=== PATIENT | female | born 1990 | race Two or more races ===

== ENCOUNTER 2019-03-02 21:27 | Emergency (ER) | payer OTHER ==
[~2019-03-02] VITALS: Ht 162.6 cm; Wt 49.4 kg
== END 2019-03-02 23:55 | disposition home or self-care (01) ==
LOC: ER 21:27
DX: K64.4 Residual hemorrhoidal skin tags (principal)

== ENCOUNTER 2020-08-09 13:29 | Emergency (ER) | payer OTHER ==
[~2020-08-09] VITALS: Ht 162.6 cm; Wt 51.7 kg
== END 2020-08-09 16:13 | disposition home or self-care (01) ==
LOC: ER 13:29
DX: N83.291 Other ovarian cyst, right side (principal); R10.2 Pelvic and perineal pain

== ENCOUNTER 2020-10-23 15:20 | Emergency (ER) | payer OTHER ==
[~2020-10-23] VITALS: Ht 162.6 cm; Wt 49.0 kg
== END 2020-10-23 19:48 | disposition home or self-care (01) ==
LOC: ER 15:20
DX: N83.291 Other ovarian cyst, right side (principal); D28.7 Benign neoplasm of other specified female genital organs; R10.31 Right lower quadrant pain

== ENCOUNTER 2020-10-25 05:03 | Emergency (ER) | payer OTHER ==
[~2020-10-25] VITALS: Ht 162.6 cm; Wt 49.0 kg
[2020-10-25] MEDS ORDERED: LAMICTAL150 M1 (05:14)
[2020-10-25] MEDS ORDERED: PEPCID AC20 MG PO (10:18)
[2020-10-25] MEDS ORDERED: KETO10TA2 PO (10:18)
== END 2020-10-25 10:36 | disposition home or self-care (01) ==
LOC: ER 05:03
DX: N39.0 Urinary tract infection, site not specified (principal); R10.2 Pelvic and perineal pain

== ENCOUNTER 2023-08-26 05:54 | Emergency (ER) | payer OTHER ==
[~2023-08-26] VITALS: Ht 162.6 cm; Wt 55.8 kg
[~2023-08-26 05:54] MED LIST: KETO10TA2 PO; LAMICTAL150 M1; PEPCID AC20 MG PO
== END 2023-08-26 06:42 | disposition home or self-care (01) ==
LOC: ER 05:55
DX: H92.01 Otalgia, right ear (principal)

== ENCOUNTER 2024-05-14 00:42 | Emergency (ER) | payer OTHER ==
[~2024-05-14] VITALS: Ht 162.6 cm; Wt 54.4 kg
[2024-05-14] MEDS ORDERED: RINGERS SOLUTION,LACTATED 1,000 ML IV STA (02:11)
[2024-05-14] MEDS ORDERED: FAMOtidine 10 MG/ML (4ML VIAL) IV PUSH STA (02:12)
[2024-05-14] MEDS ORDERED: ONDANSETRON HCL 2 MG/ML VIAL IV STA (02:12)
[2024-05-14] MEDS ORDERED: KETOROLAC TROMETHAMINE 30 MG VIAL IV STA (02:13)
[2024-05-14 03:57] LABS: HEMATOCRIT 36.9 % (36.0-45.00); HEMOGLOBIN 12.6 g/dL (12.0-15.00); MEAN CELL VOLUME 91.6 fL (80.00-100.00); MEAN CORPUSCULAR HEMOGLOBIN 31.1 pg (27.00-32.0); PLATELET COUNT 176 K/uL (150-450); RED BLOOD COUNT 4.03 M/uL (4.00-6.00); RED CELL DISTRIBUTION WIDTH 13.9 % (11.5-14.5)
[2024-05-14 04:03] LABS: CALCIUM 8.7 mg/dL (8.5-10.1); CREATININE SERUM 0.77 mg/dL (0.55-1.02); GFR 86.87; POTASSIUM 3.58 mEq/L (3.5-5.1)
[2024-05-14 04:15] LABS: PH,URINE 6.5 (5.0-8.0); URINE APPEARANCE Clear; URINE BILIRRUBIN Negative (NEGATIVE); URINE BLOOD Small; URINE COLOR Yellow; URINE GLUCOSE Negative (NEGATIVE); URINE LEUKOCYTE Moderate; URINE NITRATE Negative; URINE PROTEIN Trace (NEGATIVE); URINE UROBILINOGEN 0.2 E.U./dl
[2024-05-14 04:20] LABS: URINE CAST 1.98 uL (0.0-1.40); URINE EPITHELIAL CELLS 35.4 uL (0.0-38.8); URINE RBC 92.2 uL (0.0-20.8); URINE WBC 302.1 uL (0.0-23.2)
[2024-05-14 04:32] LABS: URINE KETONE 40 (NEGATIVE)
[2024-05-14] MEDS ORDERED: CIPROFLOXACIN IN 5 % DEXTROSE 400 MG/200 ML PIGGYBAG IV STA (05:10)
[2024-05-14] MEDS ORDERED: METHYLPREDNISOLONE SOD SUCC 40 MG VIAL IV ONE (08:30)
[2024-05-14] MEDS ORDERED: DIPHENHYDRAMINE HCL 50 MG/ML VIAL 1ML IV ONE (08:30)
== END 2024-05-14 06:10 | disposition home or self-care (01) ==
LOC: ER 00:44
DX: N39.0 Urinary tract infection, site not specified (principal); K52.9 Noninfective gastroenteritis and colitis, unspecified

== ENCOUNTER 2024-05-28 18:59 | Inpatient (IN) | payer OTHER ==
[~2024-05-28] VITALS: Ht 162.6 cm; Wt 51.7 kg
[2024-05-28] MEDS ORDERED: 0.9 % SODIUM CHLORIDE 1,000 ML IV STA (19:46)
[2024-05-28] MEDS ORDERED: KETOROLAC TROMETHAMINE 30 MG VIAL IV ONE (20:00)
[2024-05-28 21:23] LABS: MEAN CELL VOLUME 91.5 fL (80.00-100.00); MEAN CORPUSCULAR HGB CONC 34.6 g/dl (32.0-36.0); PLATELET COUNT 251 K/uL (150-450); RED BLOOD COUNT 2.51 M/uL (4.00-6.00); RED CELL DISTRIBUTION WIDTH 14.1 % (11.5-14.5)
[2024-05-28 21:24] LABS: MEAN CORPUSCULAR HEMOGLOBIN 31.4 pg (27.00-32.0)
[2024-05-28 21:25] LABS: HEMOGLOBIN 7.9 g/dL (12.0-15.00)
[2024-05-28 21:30] LABS: PH,URINE 6.5 (5.0-8.0); URINE APPEARANCE Cloudy; URINE BILIRRUBIN Negative (NEGATIVE); URINE BLOOD Negative; URINE COLOR Yellow; URINE GLUCOSE Negative (NEGATIVE); URINE KETONE Negative (NEGATIVE); URINE LEUKOCYTE Small; URINE NITRATE Negative; URINE PROTEIN Negative (NEGATIVE); URINE UROBILINOGEN 0.2 E.U./dl
[2024-05-28 21:32] LABS: URINE BACTERIA 5216.1 uL (0.0-1933); URINE RBC 24.4 uL (0.0-20.8); URINE WBC 115.7 uL (0.0-23.2)
[2024-05-28 21:45] LABS: CALCIUM 8.7 mg/dL (8.5-10.1); CREATININE SERUM 0.65 mg/dL (0.55-1.02); GFR 105.63; POTASSIUM 3.79 mEq/L (3.5-5.1)
[2024-05-28 21:59] LABS: URINE EPITHELIAL CELLS > 201.7 uL (0.0-38.8)
[2024-05-28 22:00] LABS: URINE MUCUS SCANT
[2024-05-28] MEDS ORDERED: PROMETHAZINE HCL 25 MG/ML AMPUL IM ONE (22:30)
[2024-05-28] MEDS ORDERED: MEPERIDINE HCL/PF 25 MG/ML VIAL IM ONE (22:30)
[2024-05-29] MEDS ORDERED: RINGERS SOLUTION,LACTATED 1,000 ML IV ONE ×2 (02:00→02:30)
[2024-05-29 02:39] LABS: MEAN CELL VOLUME 91.2 fL (80.00-100.00); MEAN CORPUSCULAR HGB CONC 34.6 g/dl (32.0-36.0); PLATELET COUNT 202 K/uL (150-450); RED BLOOD COUNT 2.22 M/uL (4.00-6.00); RED CELL DISTRIBUTION WIDTH 14.3 % (11.5-14.5)
[2024-05-29 02:41] LABS: HEMATOCRIT 20.3 % (36.0-45.00); MEAN CORPUSCULAR HEMOGLOBIN 31.5 pg (27.00-32.0)
[2024-05-29 02:53] LABS: INR 1.03; PARTIAL THROMBOPLASTIN TIME 21.9 SECONDS (22.0-34.0); PROTHROMBIN TIME 11.2 SECONDS (9.0-11.5)
[2024-05-29] MEDS ORDERED: RINGERS SOLUTION,LACTATED 1,000 ML IV SCH (04:45)
[2024-05-29] MEDS ORDERED: SIMETHICONE 125 MG CAPSULE PO SCH (04:46)
[2024-05-29] MEDS ORDERED: MEPERIDINE HCL/PF 50 MG/ML VIAL IV SCH (06:00)
[2024-05-29] MEDS ORDERED: PROMETHAZINE HCL 50 MG/ML AMPUL IV SCH (06:00)
[2024-05-29] MEDS ORDERED: CEFOXITIN SODIUM 2,000 MG VIAL IV ONE (06:00)
[2024-05-29] MEDS ORDERED: MEPERIDINE HCL 25 MG/ML AMPUL IV ONE (07:30)
[2024-05-29 09:41] LABS: MEAN CELL VOLUME 91.6 fL (80.00-100.00); MEAN CORPUSCULAR HGB CONC 34.8 g/dl (32.0-36.0); PLATELET COUNT 158 K/uL (150-450); RED BLOOD COUNT 2.73 M/uL (4.00-6.00); RED CELL DISTRIBUTION WIDTH 14.1 % (11.5-14.5)
[2024-05-29 09:47] LABS: HEMOGLOBIN 8.7 g/dL (12.0-15.00); MEAN CORPUSCULAR HEMOGLOBIN 31.8 pg (27.00-32.0)
[2024-05-29 10:15] VITALS: BP 93/56
[2024-05-29 11:08] VITALS: BP 123/62
[2024-05-29] MEDS ORDERED: MEPERIDINE HCL/PF 50 MG/ML VIAL IV PRN (14:08)
[2024-05-29] MEDS ORDERED: PROMETHAZINE HCL 50 MG/ML AMPUL IV PRN (14:08)
[2024-05-29] MEDS ORDERED: 0.9 % SODIUM CHLORIDE 1,000 ML IV SCH (15:00)
[2024-05-29 16:44] VITALS: BP 100/62; O2SAT 98
[2024-05-29] MEDS ORDERED: KETOROLAC TROMETHAMINE 30 MG VIAL IV PRN (17:30)
[2024-05-29] MEDS ORDERED: ACETAMINOPHEN WITH CODEINE 1 UDTAB TABLET PO PRN (17:30)
[2024-05-29] MEDS ORDERED: FAMOTIDINE/PF 20 MG in 0.9 % SODIUM CHLORIDE 8 ML IV PUSH SCH (21:00)
[2024-05-29 23:54] VITALS: BP 89/63; O2SAT 100
[2024-05-30 03:56] LABS: HEMATOCRIT 27.1 % (36.0-45.00); HEMOGLOBIN 9.2 g/dL (12.0-15.00); MEAN CELL VOLUME 91.1 fL (80.00-100.00); RED BLOOD COUNT 2.98 M/uL (4.00-6.00); RED CELL DISTRIBUTION WIDTH 14.5 % (11.5-14.5)
[2024-05-30 04:16] LABS: PLATELET COUNT 127 K/uL (150-450)
[2024-05-30 08:27] VITALS: BP 101/60; O2SAT 97
[2024-05-30] MEDS ORDERED: KETOROLAC TROMETHAMINE 10 MG TABLET PO PRN (11:30)
[2024-05-30] MEDS ORDERED: IRON FUM,PS/FOLIC/BCOMP,C NO.9 1 CAP CAPSULE PO NR (13:00)
[2024-05-30 16:00] VITALS: BP 118/76; O2SAT 97
[2024-05-30] MEDS ORDERED: FAMOtidine 20 MG TABLET PO SCH (21:00)
[2024-05-31 01:34] VITALS: BP 107/71; O2SAT 97
[2024-05-31 06:53] LABS: HEMATOCRIT 28.7 % (36.0-45.00); MEAN CELL VOLUME 91.9 fL (80.00-100.00); MEAN CORPUSCULAR HGB CONC 34.9 g/dl (32.0-36.0); PLATELET COUNT 151 K/uL (150-450); RED BLOOD COUNT 3.12 M/uL (4.00-6.00); RED CELL DISTRIBUTION WIDTH 13.9 % (11.5-14.5)
[2024-05-31 08:00] VITALS: BP 99/71; O2SAT 98
[2024-05-31] MEDS ORDERED: IRON FUM,PS/FOLIC/BCOMP,C NO.9 1 CAP CAPSULE PO SCH (09:00)
[2024-05-31] MEDS ORDERED: ACETAMINOPHEN-1 EAC2 PO (09:10)
[2024-05-31] MEDS ORDERED: KETO10TA2 PO (09:10)
[2024-05-31] MEDS ORDERED: INTEGRA PLUS C1 EACH PO (09:10)
== END 2024-05-31 13:48 | disposition home or self-care (01) | DRG 743 ==
LOC: ER 19:00 → SURH 05-29 02:15 → SEC-K 05-29 02:15 → SURH 05-29 06:18
PROVIDERS: Emergency Medicine; General Practice; Obstetrics & Gynecology; ADMIT Obstetrics & Gynecology; ATTEND Obstetrics & Gynecology
PROC: 30233N1 Transfusion of Nonautologous Red Blood Cells into Peripheral Vein, Percutaneous Approach (ICD-10-PCS; 2024-05-29)
PROC: 0UB10ZZ Excision of Left Ovary, Open Approach (ICD-10-PCS; principal; 2024-05-29 07:00)
DX: N83.12 Corpus luteum cyst of left ovary (principal); N83.02 Follicular cyst of left ovary; D50.0 Iron deficiency anemia secondary to blood loss (chronic); Z20.822 Contact with and (suspected) exposure to COVID-19

== ENCOUNTER → 2025-02-24 | Emergency (ER) | payer OTHER ==
[~2025-02-24] VITALS: Ht 162.6 cm; Wt 53.5 kg
[~2025-02-24] MED LIST changes: +0.9 % SODIUM CHLORIDE 1,000 ML IV STA; +ACETAMINOPHEN-1 EAC2 PO; +INTEGRA PLUS C1 EACH PO; +KETOROLAC TROMETHAMINE 30 MG VIAL IV STA; +NORFLEX100MG PO; +ONDANSETRON HCL 2 MG/ML VIAL IV STA
== END | disposition left against medical advice (07) ==
LOC: ER 22:34
DX: R10.2 Pelvic and perineal pain (principal)

== ENCOUNTER 2025-02-25 13:45 | Emergency (ER) | payer OTHER ==
[~2025-02-25] VITALS: Ht 162.6 cm; Wt 54.4 kg
[~2025-02-25 13:45] MED LIST changes: -0.9 % SODIUM CHLORIDE 1,000 ML IV STA; -KETOROLAC TROMETHAMINE 30 MG VIAL IV STA; -NORFLEX100MG PO; -ONDANSETRON HCL 2 MG/ML VIAL IV STA
[2025-02-25] MEDS ORDERED: 0.9 % SODIUM CHLORIDE 1,000 ML IV ONE (17:00)
[2025-02-25] MEDS ORDERED: KETOROLAC TROMETHAMINE 30 MG VIAL IV ONE (17:00)
[2025-02-25 17:32] LABS: BASO % 0.7 % (0.1-1.2); EOS # 0.07 (0.04-0.54); EOS % 1.0 % (0.7-7.0); LYMPH # 1.70 (1.18-3.74); LYMPH % 24.7 % (19.3-53.1); MEAN PLATELET VOLUME 9.50 fl (9.4-12.4); MONO # 0.64 (0.24-0.82); MONO % 9.3 % (4.7-12.5); NEUT # 4.40 (1.56-6.13); NEUT % 64.2 % (34.0-71.1); RED CELL DISTRIBUTION WIDTH 12.8 % (11.6-14.4)
[2025-02-25 17:51] LABS: INR 1.0
[2025-02-25 18:14] LABS: URINE APPEARANCE Clear; URINE BILIRRUBIN Negative (NEGATIVE); URINE BLOOD Negative; URINE COLOR Yellow; URINE GLUCOSE Negative (NEGATIVE); URINE KETONE 15 (NEGATIVE); URINE LEUKOCYTE Negative; URINE NITRATE Negative; URINE PROTEIN Negative (NEGATIVE); URINE UROBILINOGEN 0.2 E.U./dl
[2025-02-25 18:18] LABS: URINE BACTERIA 3342.0 uL (0.0-1933); URINE EPITHELIAL CELLS 49.8 uL (0.0-38.8); URINE RBC 19.3 uL (0.0-20.8); URINE WBC 29.9 uL (0.0-23.2)
[2025-02-25 18:29] LABS: URINE CAST 0.29 uL (0.0-1.40)
[2025-02-25 18:30] LABS: ALT/SGPT 16 U/L (12-78); AST/SGOT 17 U/L (15-37); BILIRUBIN TOTAL 0.48 mg/dL (0.3-1.2); BUN CREA RATIO 11 (7.0-25.0); CREATININE SERUM 0.72 mg/dL (0.55-1.02); GFR 93.29; GLOBULINA 3.1 G/DL (2.4-3.5); GLUCOSE FASTING 87 mg/dL (65-100); OSMOLALITY SERUM 275 MOSM/KG (275-295)
[2025-02-25 18:41] LABS: HCG QUANTITATIVE < 1 mUI/mL (1-3)
[2025-02-25] MEDS ORDERED: ORPHENADRINE CITRATE 30 MG/ML AMPUL IV ONE (23:15)
[2025-02-25 23:39] LABS: BASO % 0.6 % (0.1-1.2); EOS # 0.09 (0.04-0.54); EOS % 1.3 % (0.7-7.0); LYMPH # 1.81 (1.18-3.74); LYMPH % 26.0 % (19.3-53.1); MEAN PLATELET VOLUME 9.60 fl (9.4-12.4); MONO # 0.72 (0.24-0.82); MONO % 10.3 % (4.7-12.5); NEUT # 4.29 (1.56-6.13); NEUT % 61.5 % (34.0-71.1); RED CELL DISTRIBUTION WIDTH 12.8 % (11.6-14.4)
[2025-02-25] MEDS ORDERED: NORFLEX100MG PO (23:48)
== END 2025-02-26 00:08 | disposition home or self-care (01) ==
LOC: ER 13:45
PROVIDERS: General Practice
DX: R10.9 Unspecified abdominal pain (principal); N83.202 Unspecified ovarian cyst, left side
CPT/HCPCS: 36415; 74177; 76830; Q9965